=== PATIENT | male | born 1990 | race Asian ===

== ENCOUNTER → 2022-01-03 09:53 | Outpatient (CLI) | payer BC, SELFPAY ==
[2022-01-03 11:09] LABS: Cholesterol 186 mg/dL (140-199); Glucose 94 mg/dL (70-100); HDL Cholesterol 71 mg/dL (40-60); LDL Cholesterol Calculated 82 mg/dL (<100); Triglycerides 167 mg/dL (35-150)
[2022-01-03 12:59] LABS: Urine N gonorrhoeae NOT DETECTED
[2022-01-03 13:03] LABS: Urine Chlamydia NOT DETECTED
[2022-01-03 19:26] LABS: HIV 1 & 2 Ab/Ag 4th Gen Combo NEGATIVE (NEGATIVE); Hep C Virus Ab w/Reflex Quant NEGATIVE s/c (NEGATIVE)
== END ==
PROVIDERS: PCP Internal Medicine; Referring Provider Internal Medicine; Visit Provider Internal Medicine
DX: Z00.00 Encounter for general adult medical examination without abnormal findings (principal); Z20.9 Contact with and (suspected) exposure to unspecified communicable disease
CPT/HCPCS: 36415; 80061; 82947; 86803; 87389; 87491; 87591

== ENCOUNTER → 2023-10-13 08:30 | Outpatient (CLI) | payer BC, SELFPAY ==
[2023-10-13 09:57] LABS: Cholesterol 173 mg/dL (140-199); Glucose 82 mg/dL (70-100); HDL Cholesterol 61 mg/dL (40-60); LDL Cholesterol Calculated 94 mg/dL (<100); Triglycerides 89 mg/dL (35-150)
[2023-10-13 10:15] LABS: Urine Chlamydia NOT DETECTED; Urine N gonorrhoeae NOT DETECTED
[2023-10-13 15:46] LABS: HIV 1 & 2 Ab/Ag 4th Gen Combo NEGATIVE (NEGATIVE)
== END ==
PROVIDERS: PCP Internal Medicine; Referring Provider Internal Medicine; Visit Provider Internal Medicine
DX: Z00.00 Encounter for general adult medical examination without abnormal findings (principal); Z20.9 Contact with and (suspected) exposure to unspecified communicable disease
CPT/HCPCS: 36415; 80061; 82947; 87389; 87491; 87591